=== PATIENT | female | born 1995 | race Two or more races ===

== ENCOUNTER → 2023-12-03 15:42 | Outpatient (CLI) | payer OTHER | END | disposition home or self-care (01) | LOC: PRENATAL 15:42 | PROVIDERS: ATTEND Obstetrics & Gynecology Maternal & Fetal Medicine | DX: O36.80X0 Pregnancy with inconclusive fetal viability, not applicable or unspecified (principal); Z36.82 Encounter for antenatal screening for nuchal translucency; O36.1999 Maternal care for other isoimmunization, unspecified trimester, other fetus; Z36.9 Encounter for antenatal screening, unspecified; Z14.8 Genetic carrier of other disease; Z3A.12 12 weeks gestation of pregnancy ==

== ENCOUNTER 2024-01-28 14:56 | Outpatient (CLI) | payer OTHER | END 2024-01-28 14:57 | disposition home or self-care (01) | LOC: PRENATAL 14:56 | PROVIDERS: ATTEND Obstetrics & Gynecology Maternal & Fetal Medicine | DX: O35.3XX0 Maternal care for (suspected) damage to fetus from viral disease in mother, not applicable or unspecified (principal); O44.00 Complete placenta previa NOS or without hemorrhage, unspecified trimester; O36.1999 Maternal care for other isoimmunization, unspecified trimester, other fetus; Z3A.20 20 weeks gestation of pregnancy ==

== ENCOUNTER 2024-04-01 11:37 | Outpatient (CLI) | payer OTHER | END 2024-04-01 11:38 | disposition home or self-care (01) | LOC: PRENATAL 11:37 | PROVIDERS: ATTEND Obstetrics & Gynecology Maternal & Fetal Medicine | DX: O26.843 Uterine size-date discrepancy, third trimester (principal); O44.00 Complete placenta previa NOS or without hemorrhage, unspecified trimester; O36.1999 Maternal care for other isoimmunization, unspecified trimester, other fetus; O36.0930 Maternal care for other rhesus isoimmunization, third trimester, not applicable or unspecified; Z3A.29 29 weeks gestation of pregnancy ==

== ENCOUNTER 2024-05-05 13:56 | Outpatient (CLI) | payer OTHER | END 2024-05-05 13:57 | disposition home or self-care (01) | LOC: PRENATAL 13:56 | PROVIDERS: ATTEND Obstetrics & Gynecology Maternal & Fetal Medicine | DX: O26.849 Uterine size-date discrepancy, unspecified trimester (principal); O36.8199 Decreased fetal movements, unspecified trimester, other fetus; O36.1999 Maternal care for other isoimmunization, unspecified trimester, other fetus; Z3A.33 33 weeks gestation of pregnancy ==

== ENCOUNTER 2024-06-22 13:13 | Inpatient (IN) | payer OTHER ==
[~2024-06-22] VITALS: Ht 167.6 cm; Wt 2.7 kg
[2024-06-22 12:51] VITALS: BP 125/87
[~2024-06-22 13:13] MED LIST: DUI500 PO; NEXIUM20 M1 PO; PEPCID AC20 MG PO
[2024-06-22] MEDS ORDERED: PRENATA CHEWAB1 EACH PO (13:27)
[2024-06-22] MEDS ORDERED: RINGERS SOLUTION,LACTATED 1,000 ML IV SCH (13:30)
[2024-06-22 13:51] LABS: URINE APPEARANCE Clear; URINE BILIRRUBIN Negative (NEGATIVE); URINE BLOOD Negative; URINE COLOR Yellow; URINE GLUCOSE Negative (NEGATIVE); URINE KETONE Negative (NEGATIVE); URINE LEUKOCYTE Moderate; URINE NITRATE Negative; URINE PROTEIN Negative (NEGATIVE)
[2024-06-22 13:52] LABS: HEMATOCRIT 38.9 % (36.0-45.00); HEMOGLOBIN 13.3 g/dL (12.0-15.00); MEAN CELL VOLUME 84.4 fL (80.00-100.00); MEAN CORPUSCULAR HEMOGLOBIN 28.9 pg (27.00-32.0); MEAN CORPUSCULAR HGB CONC 34.2 g/dl (32.0-36.0); PLATELET COUNT 278 K/uL (150-450); RED BLOOD COUNT 4.61 M/uL (4.00-6.00); RED CELL DISTRIBUTION WIDTH 14.4 % (11.5-14.5)
[2024-06-22 13:54] LABS: URINE BACTERIA 600.8 uL (0.0-1933); URINE EPITHELIAL CELLS 9.9 uL (0.0-38.8); URINE WBC 32.1 uL (0.0-23.2)
[2024-06-22 14:06] LABS: URINE RBC 0.8 uL (0.0-20.8)
[2024-06-22 14:14] LABS: INR < 0.93; PARTIAL THROMBOPLASTIN TIME 25.7 SECONDS (22.0-34.0); PROTHROMBIN TIME 9.8 SECONDS (9.0-11.5)
[2024-06-22 14:17] LABS: ALBUMIN 2.6 gm/dL (3.4-5.0); BILIRUBIN TOTAL 0.6 mg/dL (0.3-1.2); CALCIUM 9.2 mg/dL (8.5-10.1); CREATININE SERUM 0.66 mg/dL (0.55-1.02); GFR 105.88; GLOBULINA 3.7 G/DL (2.4-3.5); POTASSIUM 4.06 mEq/L (3.5-5.1); TOTAL PROTEIN 6.3 gm/dL (6.4-8.2)
[2024-06-22 15:06] VITALS: BP 127/77
[2024-06-22 17:15] VITALS: BP 125/87; BP 127/77
[2024-06-22] MEDS ORDERED: AMPICILLIN SODIUM 2,000 MG VIAL IV ONE (17:30)
[2024-06-22 19:53] VITALS: BP 127/77
[2024-06-22] MEDS ORDERED: AMPICILLIN SODIUM 1,000 MG VIAL IV SCH (21:00)
[2024-06-22 23:06] VITALS: BP 127/76
[2024-06-23 03:04] VITALS: BP 122/70
[2024-06-23 07:33] VITALS: BP 130/82
[2024-06-23] MEDS ORDERED: MISOPROSTOL 25 MCG/4 ML GEL.W.APPL ONE (07:55)
[2024-06-23] MEDS ORDERED: CEFAZOLIN SODIUM 1,000 MG VIAL IV SCH (08:30)
[2024-06-23] MEDS ORDERED: OXYTOCIN 10 UNITS/ML VIAL ONE ×2 (11:19→17:30)
[2024-06-23] MEDS ORDERED: ERYTHROMYCIN BASE OPHT 1GM EACH TUBE OP ONE (11:19)
[2024-06-23] MEDS ORDERED: OXYTOCIN 1,000 ML IV SCH (13:15)
[2024-06-23] MEDS ORDERED: MORPHINE SULFATE 4 MG/ML CARTRIDGE IV PRN (13:15)
[2024-06-23] MEDS ORDERED: RINGERS SOLUTION,LACTATED 1,000 ML IV SCH (13:15)
[2024-06-23] MEDS ORDERED: MORPHINE SULFATE 4 MG/ML VIAL IV ONE ×2 (14:40→16:05)
[2024-06-23 15:43] LABS: HEMATOCRIT 39.3 % (36.0-45.00); HEMOGLOBIN 13.1 g/dL (12.0-15.00); MEAN CELL VOLUME 85.2 fL (80.00-100.00); MEAN CORPUSCULAR HEMOGLOBIN 28.4 pg (27.00-32.0); MEAN CORPUSCULAR HGB CONC 33.3 g/dl (32.0-36.0); PLATELET COUNT 283 K/uL (150-450); RED BLOOD COUNT 4.62 M/uL (4.00-6.00); RED CELL DISTRIBUTION WIDTH 14.7 % (11.5-14.5)
[2024-06-23] MEDS ORDERED: DOCUSATE SODIUM 100MG CAP PO SCH (17:00)
[2024-06-23 17:47] VITALS: BP 131/82
[2024-06-23] MEDS ORDERED: SIMETHICONE 125 MG CAPSULE PO SCH (18:00)
[2024-06-23] MEDS ORDERED: KETOROLAC TROMETHAMINE 30 MG VIAL IM ONE (22:00)
[2024-06-24 00:25] VITALS: BP 126/76
[2024-06-24 08:10] VITALS: BP 127/85
[2024-06-24] MEDS ORDERED: IBUprofen 800 MG TABLET PO SCH (09:00)
[2024-06-24 12:09] VITALS: BP 110/77
[2024-06-24 15:24] VITALS: BP 130/84
[2024-06-25 00:38] VITALS: BP 124/70
[2024-06-25 07:31] VITALS: BP 122/78
[2024-06-25] MEDS ORDERED: FF) RHO(D) IMMUNE GLOBULIN (POM) IM NR (15:00)
[2024-06-25 16:12] VITALS: BP 116/72
[2024-06-25 23:44] VITALS: BP 119/74
[2024-06-26 08:07] VITALS: BP 118/79
== END 2024-06-26 10:58 | disposition home or self-care (01) | DRG 788 ==
LOC: OBS/DEL 13:13 → OB/GYN 17:17 → LDR 17:17 → OB/GYN 06-23 10:47
PROVIDERS: ADMIT Obstetrics & Gynecology; ATTEND Obstetrics & Gynecology
PROC: BY4CZZZ Ultrasonography of Second Trimester, Single Fetus (ICD-10-PCS; 2024-06-22)
PROC: 4A1HXCZ Monitoring of Products of Conception, Cardiac Rate, External Approach (ICD-10-PCS; 2024-06-22)
PROC: 10D00Z1 Extraction of Products of Conception, Low, Open Approach (ICD-10-PCS; principal; 2024-06-23 11:00)
DX: O48.0 Post-term pregnancy (principal); O99.824 Streptococcus B carrier state complicating childbirth; Z3A.41 41 weeks gestation of pregnancy; Z37.0 Single live birth